=== PATIENT | female | born 1970 | race Caucasian/White ===

== ENCOUNTER → 2018-04-29 08:36 | Outpatient (CLI) | payer OTHER, SELFPAY ==
--- NOTE | 2018-04-29 12:14 | NEURO ---
NCS and/or EMG Patient Report Ordering Doctor: Eunice Fisher DATE OF SERVICE: 04/29/18 Lizzie Shah is a 47-year-old female presents for electrodiagnostic testing of the right lower limb. She has had right ankle surgery has continued pain and burning around the right ankle. Electrodiagnostic findings: Right common peroneal nerve temperature is normal distal latency, amplitude and conduction velocity. Normal right tibial motor response. Normal right tibial and peroneal F-wave. H reflex normal bilaterally. Prolonged right sural latency is noted. Needle EMG testing reveals no evidence of denervation with normal motor unit action potentials. Electrodiagnostic impression: This is an abnormal study. 1. 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 2. No electrodiagnostic evidence for peroneal or tibial neuropathy. 3. No electrodiagnostic evidence for lumbosacral radiculopathy. If there are any further questions, please do not hesitate to contact me
== END ==
LOC: PSN 08:36
PROVIDERS: Referring Provider Podiatrist Foot & Ankle Surgery; Visit Provider Podiatrist Foot & Ankle Surgery
DX: R20.2 Paresthesia of skin (principal)
CPT/HCPCS: 95886; 95910